=== PATIENT | male | born 1990 | race Caucasian/White ===

== ENCOUNTER 2020-03-29 23:33 | Emergency (ER) | payer BC ==
[~2020-03-29] VITALS: Ht 167.6 cm; Wt 65.8 kg
[2020-03-29 23:49] VITALS: BP 137/77
--- NOTE | 2020-03-30 00:06 | NUR ---
CALLED LAB FOR COVID SWAB
--- NOTE | 2020-03-30 00:26 | NUR ---
PATIENT'S COVID SWAB SAMPLE COLLECTED AND SENT TO THE LAB.
--- NOTE | 2020-03-30 01:00 | NUR ---
LAB CALLED REGARDING NEGATIVE COVID RESULT.
--- NOTE | 2020-03-30 01:04 | NUR ---
Patient discharged to home in stable condition. Written and verbal after care instructions given. Patient verbalizes understanding of instruction. Pt aaox4, vss, no sob. Pt ambulatory w/ steady gait
== END 2020-03-30 01:04 | disposition home or self-care (01) ==
LOC: ER 23:33
DX: R04.2 Hemoptysis (principal); Z20.822 Contact with and (suspected) exposure to COVID-19; F12.90 Cannabis use, unspecified, uncomplicated
CPT/HCPCS: 71045; 87426; 99284; C9803